=== PATIENT | male | born 1990 | race Caucasian/White ===

== ENCOUNTER 2017-10-09 06:29 | Day surgery (SDC) | payer BC ==
[~2017-10-09] VITALS: Ht 162.6 cm; Wt 62.6 kg
[2017-10-09] MEDS ORDERED: LACTATED RINGERS 1,000 ML IV SCH (07:30)
[2017-10-09] MEDS ORDERED: NORMAL SALINE 0.9% 10 ML SYR ONE (10:58)
[2017-10-09] MEDS ORDERED: BUPIVACAINE HCL/EPINEPHRINE/PF 0.5%/0.0005 10ML ONE (10:58)
[2017-10-09] MEDS ORDERED: BACITRACIN 50,000 UNITS/VIAL ONE (10:58)
[2017-10-09] MEDS ORDERED: BUPIVACAINE HCL/PF 0.5% (5MG/ML) 10ML ONE (11:00)
[2017-10-09] MEDS ORDERED: HYDROCODONE/ACETAMINOPHEN 10/325MG TABLET PO PRN (11:45)
[2017-10-09] MEDS ORDERED: ONDANSETRON HCL 4MG/2ML VIAL IV PRN ×2 (11:45→14:15)
[2017-10-09] MEDS ORDERED: PROPOFOL 200MG/20ML VIAL IV ONE (11:48)
[2017-10-09] MEDS ORDERED: FENTANYL CITRATE/PF 50MCG/ML 2ML VIAL ONE ×2 (11:48→12:31)
[2017-10-09] MEDS ORDERED: MIDAZOLAM HCL 2 MG/2 ML VIAL ONE (11:48)
[2017-10-09] MEDS ORDERED: ETOMIDATE 2MG/ML 10ML VIAL IV ONE (12:31)
[2017-10-09] MEDS ORDERED: LIDOCAINE HCL/PF 1% 10 MG/ML 5ML VIAL ONE (12:31)
[2017-10-09] MEDS ORDERED: MORPHINE SULFATE/PF 1MG/ML 10ML AMP ONE (13:32)
[2017-10-09] MEDS ORDERED: HYDROMORPHONE HCL/PF 2MG/ML CPJ IV PRN (14:15)
[2017-10-09] MEDS ORDERED: LABETALOL 5MG/ML SYR 20 MG/4 ML SYRINGE IV PRN (14:15)
[2017-10-09] MEDS: MEPERIDINE HCL/PF 25MG/ML CPJ IV PRN ×2 (14:18→14:57)
[2017-10-09 15:43] VITALS: BP 145/86
== END 2017-10-09 17:30 | disposition home or self-care (01) ==
LOC: OR 06:29
PROVIDERS: ATTEND Orthopaedic Surgery
DX: S82.891A Other fracture of right lower leg, initial encounter for closed fracture (principal); S83.411A Sprain of medial collateral ligament of right knee, initial encounter; W18.39XA Other fall on same level, initial encounter; Y93.89 Activity, other specified; Y92.89 Other specified places as the place of occurrence of the external cause; Y99.9 Unspecified external cause status
CPT/HCPCS: 27792; 73610; 97116; 97161; A4216; J1170; J2175; J2250; J2405; J3010; J3490; J7120; Q4051; J0171; J2274; J2704

== ENCOUNTER 2017-12-24 12:14 | Emergency (ER) | payer BC ==
[~2017-12-24] VITALS: Ht 162.6 cm; Wt 59.0 kg
[2017-12-24 12:43] VITALS: BP 140/93
== END 2017-12-24 17:27 | disposition home or self-care (01) ==
LOC: ER 17:15
DX: S92.252A Displaced fracture of navicular [scaphoid] of left foot, initial encounter for closed fracture (principal); M87.08 Idiopathic aseptic necrosis of bone, other site; W19.XXXA Unspecified fall, initial encounter; Y93.89 Activity, other specified; Y92.89 Other specified places as the place of occurrence of the external cause; Y99.8 Other external cause status
CPT/HCPCS: 29125; 73110; 73130; 99284